=== PATIENT | female | born 1970 | race Caucasian/White ===

== ENCOUNTER → 2017-01-02 | Outpatient (CLI) | payer BC ==
--- NOTE | 2017-01-02 16:05 | REP ---
Digital screening mammography with CAD: Comparison mammography 12/13/2015, 11/27/2014, 11/18/2012. Mammographic findings: Breast parenchyma is heterogeneously dense in a pattern which would inhibit the sensitivity of mammography. There is a dominant rounded 3.5 cm mass density in the subareolar region of the left breast on the CC view which appears to be superior at approximate 12 o'clock on the MLO projection image. This merits further evaluation. May be a breast cyst. No other dominant density is seen. No worrisome skin change is seen. Impression: BIRADS category zero incomplete breast imaging. 3.5 cm mass at 12 o'clock in the left breast merits further evaluation. This may be a cyst. Diagnostic left breast mammography and focused left breast sonography recommended. This mammogram was interpreted with the aid of an FDA-approved computer-aided detection system. The patient states she/he had a clinical breast exam in December 2016. The patient letter being requested is M0 dense .
== END ==
LOC: M WHC 13:41
PROVIDERS: ATTEND Nurse Practitioner Family
DX: Z12.31 Encounter for screening mammogram for malignant neoplasm of breast (principal)

== ENCOUNTER → 2017-01-06 | Outpatient (CLI) | payer BC ==
--- NOTE | 2017-01-06 18:10 | REP ---
DIAGNOSTIC MAMMOGRAM LEFT BREAST WITH LEFT BREAST ULTRASOUND: Spot compression views left breast are performed in multiple projections and correlated with the recent mammogram of 01/02/2017 which showed a nodule in the upper aspect. Most of the margins are obscured by adjacent dense parenchymal tissue but the visualized margins appear fairly smooth and well defined anteriorly. Real-time sonographic evaluation of the 12 o'clock position of the left breast demonstrates a dominant cyst 3.1 x 1.1 x 2.7 cm corresponding to the nodule on the mammogram. Another cyst is seen retroareolar region measuring 9 x 7 x 12 mm. There is adjacent dense fibroglandular tissue. IMPRESSION: ACR 2 benign. Nodule confirmed in the upper left breast close to the nipple. This corresponds to a simple cyst by ultrasound, and another retroareolar cyst is seen which is smaller. Findings are ACR 2 benign. Recommend followup mammogram in one year. BI-RADS/ACR category 2 mammogram. Benign finding(s). Routine annual screening mammography (for women over age 40). The patient letter being requested is M1. Signed by Darrell Villatoro MD 01/07/2017 07:42 P
== END ==
LOC: M RAD 14:07
PROVIDERS: ATTEND Nurse Practitioner Family
DX: R92.8 Other abnormal and inconclusive findings on diagnostic imaging of breast (principal)

== ENCOUNTER → 2018-11-30 | Outpatient (REF) | payer BC ==
[2018-12-02 14:27] LABS: HPV HYBRID CAPTURE II Negative (Negative)
== END ==
LOC: M SFHCWAGY 12:04
PROVIDERS: ATTEND Nurse Practitioner Family
DX: Z12.4 Encounter for screening for malignant neoplasm of cervix (principal)
CPT/HCPCS: 87624; G0123

== ENCOUNTER → 2019-12-02 | Outpatient (REF) | payer BC | LOC: M SFHCWAGY 18:05 | PROVIDERS: ATTEND Nurse Practitioner Family | DX: Z12.4 Encounter for screening for malignant neoplasm of cervix (principal) ==

== ENCOUNTER → 2021-01-31 | Outpatient (REF) | payer BC | LOC: M SFHCWAGY 13:31 | PROVIDERS: ATTEND Nurse Practitioner Women's Health | DX: Z12.4 Encounter for screening for malignant neoplasm of cervix (principal) ==

== ENCOUNTER → 2021-08-13 | Outpatient (REF) | payer BC | LOC: M LAB REF 19:07 | PROVIDERS: ATTEND Internal Medicine Endocrinology, Diabetes & Metabolism | DX: E04.1 Nontoxic single thyroid nodule (principal) ==

== ENCOUNTER → 2024-09-12 | Outpatient (REF) | payer BC | LOC: M SFHCDERM 17:19 | PROVIDERS: ATTEND Physician Assistant | DX: L82.1 Other seborrheic keratosis (principal) ==